=== PATIENT | female | born 1985 | race African-American/Black ===

== ENCOUNTER 2020-08-18 12:35 | Outpatient (REF) | payer OTHER, SELFPAY ==
--- NOTE | ~2020-08-18 | XR_ITS ---
EXAMINATION: XR CHEST CLINICAL INFORMATION: Shortness of breath. COMPARISON: None TECHNIQUE: 2 views of the chest were obtained. FINDINGS: No significant abnormality is noted involving the heart, lungs, mediastinum, bony thorax or soft tissues. XR/XR chest 2V IMPRESSION: No acute cardiopulmonary process.
== END 2020-08-18 12:36 | disposition home or self-care (01) ==
LOC: HO.HMGCX 12:35
PROVIDERS: PCP Internal Medicine; Visit Provider Nurse Practitioner Family
DX: R06.02 Shortness of breath (principal); R05 Cough
CPT/HCPCS: 71046

== ENCOUNTER 2021-02-17 11:08 | Outpatient (REF) | payer OTHER, SELFPAY ==
[2021-02-20 14:55] LABS: TS Negative Control Passed; TS Panel A 1; TS Panel B 0; TS Positive Control Passed; TSpotTB Negative (SeeBelow)
== END 2021-02-17 11:09 | disposition home or self-care (01) ==
LOC: HO.HMGCLDS 11:08
PROVIDERS: PCP Internal Medicine; Visit Provider Internal Medicine
DX: Z11.1 Encounter for screening for respiratory tuberculosis (principal)
CPT/HCPCS: 36415; 86481

== ENCOUNTER 2022-04-19 12:23 | Outpatient (REF) | payer OTHER, SELFPAY ==
[2022-04-21 12:12] LABS: TS Negative Control Passed; TS Panel A 0; TS Panel B 0; TS Positive Control Passed; TSpotTB Negative (Negative)
== END 2022-04-19 12:24 | disposition home or self-care (01) ==
LOC: HO.HMGCLDS 12:23
PROVIDERS: PCP Internal Medicine; Visit Provider Internal Medicine
DX: Z11.1 Encounter for screening for respiratory tuberculosis (principal)
CPT/HCPCS: 36415; 86481

== ENCOUNTER 2022-05-30 17:47 | Outpatient (REF) | payer OTHER, SELFPAY ==
[2022-05-30 18:34] LABS: Influenza A PCR POSITIVE (Negative); Influenza B PCR NEGATIVE (Negative); Resp Syncy Virus RNA Qual PCR NEGATIVE (Negative); SARS COV2 PCR INHOUSE NEGATIVE (Negative)
== END 2022-05-30 17:48 | disposition home or self-care (01) ==
LOC: HO.LNP 17:47
PROVIDERS: Visit Provider Nurse Practitioner Family
DX: Z20.822 Contact with and (suspected) exposure to COVID-19 (principal); R09.89 Other specified symptoms and signs involving the circulatory and respiratory systems
CPT/HCPCS: 0241U

== ENCOUNTER 2022-07-27 08:57 | Outpatient (REF) | payer OTHER, SELFPAY ==
[2022-07-27 11:27] LABS: MANUAL DIFF FLAG NO
[2022-07-27 12:05] LABS: Basophils Percent Auto 0.4 % (0-2); Eosinophils Absolute Auto 0.1 X10*3/uL (0.0-0.4); Eosinophils Percent Auto 1.1 % (0-4); Hematocrit 32.8 % (37.0-47.0); Hemoglobin 9.9 g/dl (12.0-16.0); Imm Gran Abs Auto 0.02 X10*3/uL (0.00-0.03); Imm Gran Pct Auto 0.3 % (0.0-0.4); Lymphocytes Absolute Auto 3.5 X10*3/uL (1.2-4.9); Lymphocytes Percent Auto 43.5 % (20-40); Mean Corpuscular HGB Conc 30.2 g/dl (31.0-35.0); Mean Corpuscular Hemoglobin 24.5 pg (27.0-33.0); Mean Corpuscular Volume 81.2 fL (80.0-98.0); Mean Platelet Volume 8.8 fL (9.4-12.3); Monocytes Absolute Auto 0.5 X10*3/uL (0.1-1.2); Monocytes Percent Auto 6.5 % (2-11); Neutrophils Absolute Auto 3.8 x10*3/uL (2.0-8.3); Neutrophils Percent Auto 48.2 % (45-73); Platelet Count 440 X10*3/uL (160-400); Red Blood Count 4.04 X10*6/uL (4.20-5.50); Red Cell Distribution Width 17.3 % (11.0-16.0)
[2022-07-27 12:21] LABS: Alanine Aminotransferase 12 U/L (0-31); Alkaline Phosphatase 130 U/L (39-117); Anion Gap 13 (12-20); Aspartate Amino Transferase 15 U/L (5-31); Bilirubin Total 0.2 mg/dL (0.0-1.0); Blood Urea Nitrogen 10 mg/dL (9-16); Calcium 8.8 mg/dL (8.4-10.2); Carbon Dioxide 24 mmol/L (22-29); Chloride 106 mmol/L (96-108); Cholesterol 282 mg/dL; Estimated Glomerular Filt Rate > 60; Glucose Fasting 89 mg/dL (60-99); HDL Cholesterol 57 mg/dL; LDL Cholesterol Calculated 209 mg/dl; Potassium 4.6 mmol/L (3.3-5.1); Sodium 138 mmol/L (135-145); TSH reflex Free T4 1.14 uIU/mL (0.32-4.0); Total Protein 6.7 g/dL (6.5-8.0); Triglycerides 83 mg/dL
[2022-07-27 12:23] LABS: Syphilis Screen Nonreactive (Nonreactive)
[2022-07-27 12:26] LABS: Estimated Average Glucose 123 mg/dL; Hemoglobin A1c % 5.9 %
[2022-07-29 08:52] LABS: HBS Num1 47.85 mIU/mL (0-7.99); HBc Num1 0.36 S/CO (0.00-0.79); HBsAGNum1 0.25 S/CO (0.00-0.99); HIV AB/AG Nonreactive (Nonreactive); HIV Num 1 0.07 S/CO (0.00-0.99); Hepatitis B Core Antibody Nonreactive (Nonreactive); Hepatitis B Surface Antigen Negative (Negative); ~HepC Num1 0.17 S/CO (0.00-0.79); ~Hepatitis B Surface Antibody REACTIVE (Nonreactive); ~Hepatitis C Antibody Nonreactive (Nonreactive)
== END 2022-07-27 08:58 | disposition home or self-care (01) ==
LOC: HO.HMGCLDS 08:57
PROVIDERS: Visit Provider Internal Medicine
DX: Z00.00 Encounter for general adult medical examination without abnormal findings (principal); Z11.4 Encounter for screening for human immunodeficiency virus [HIV]; F19.10 Other psychoactive substance abuse, uncomplicated
CPT/HCPCS: 36415; 80053; 80061; 83036; 84443; 85025; 86704; 86706; 86780; 86803; 87340; 87389

== ENCOUNTER 2022-08-10 12:35 | Outpatient (REF) | payer OTHER, SELFPAY ==
[2022-08-10 14:47] LABS: Iron 25 mcg/dL (30-160); Percent Iron Saturation 8 % (15-50); Total Iron Binding Capacity 308 mcg/dL (228-428); Unsaturated Iron Binding 283 ug/dL
[2022-08-10 15:00] LABS: Sickle Cell Scr NEGATIVE (NEGATIVE)
[2022-08-10 15:02] LABS: Vitamin B12 347 pg/mL (200-900)
[2022-08-10 18:08] LABS: CT PCR NOT DETECTED (Not Detect.); NG PCR NOT DETECTED (Not Detect.)
== END 2022-08-10 12:36 | disposition home or self-care (01) ==
LOC: HO.HMGCLDS 12:35
PROVIDERS: PCP Internal Medicine; Visit Provider Internal Medicine
DX: Z00.00 Encounter for general adult medical examination without abnormal findings (principal); F19.10 Other psychoactive substance abuse, uncomplicated; D64.9 Anemia, unspecified
CPT/HCPCS: 0353U; 82607; 83540; 85660

== ENCOUNTER 2023-06-29 08:52 | Outpatient (REF) | payer OTHER, SELFPAY ==
[2023-06-29 12:03] LABS: MANUAL DIFF FLAG NO
[2023-06-29 12:23] LABS: Basophils Percent Auto 0.4 % (0-2); Eosinophils Absolute Auto 0.2 X10*3/uL (0.0-0.4); Eosinophils Percent Auto 2.4 % (0-4); Hematocrit 40.7 % (37.0-47.0); Hemoglobin 13.2 g/dl (12.0-16.0); Imm Gran Abs Auto 0.02 X10*3/uL (0.00-0.03); Imm Gran Pct Auto 0.2 % (0.0-0.4); Lymphocytes Absolute Auto 3.5 X10*3/uL (1.2-4.9); Lymphocytes Percent Auto 42.9 % (20-40); Mean Corpuscular HGB Conc 32.4 g/dl (31.0-35.0); Mean Corpuscular Hemoglobin 29.9 pg (27.0-33.0); Mean Corpuscular Volume 92.1 fL (80.0-98.0); Mean Platelet Volume 8.8 fL (9.4-12.3); Monocytes Absolute Auto 0.5 X10*3/uL (0.1-1.2); Monocytes Percent Auto 6.5 % (2-11); Neutrophils Absolute Auto 3.8 x10*3/uL (2.0-8.3); Neutrophils Percent Auto 47.6 % (45-73); Platelet Count 341 X10*3/uL (160-400); Red Blood Count 4.42 X10*6/uL (4.20-5.50); Red Cell Distribution Width 13.3 % (11.0-16.0); White Blood Count 8.1 X10*3/uL (4.8-10.8)
[2023-06-29 12:28] LABS: Cholesterol 291 mg/dL (<200); HDL Cholesterol 67 mg/dL (>40); Iron 95 mcg/dL (30-160); LDL Cholesterol Calculated 205 mg/dL (<100); Percent Iron Saturation 36 % (15-50); Total Iron Binding Capacity 263 mcg/dL (228-428); Triglycerides 96 mg/dL (<150); Unsaturated Iron Binding 168 ug/dL
[2023-07-02 07:34] LABS: TS Negative Control Passed; TS Panel A 0; TS Panel B 0; TS Positive Control Passed; TSpotTB Negative (Negative)
== END 2023-06-29 08:53 | disposition home or self-care (01) ==
LOC: HO.HMGCLDS 08:52
PROVIDERS: PCP Internal Medicine; Visit Provider Internal Medicine
DX: D64.9 Anemia, unspecified (principal); E78.5 Hyperlipidemia, unspecified; Z11.1 Encounter for screening for respiratory tuberculosis
CPT/HCPCS: 36415; 80061; 83540; 85025; 86481

== ENCOUNTER 2023-07-28 08:00 | Outpatient (AMB) | payer OTHER, SELFPAY ==
--- NOTE | 2023-07-28 08:04 | MHC.PC.OV ---
Vital Signs 07/28/23 08:05 Height 5 ft Weight 272 lb BMI 53.1 BP 128/82 Blood Pressure Location Lt brachial Position Sitting Pulse 82 Pulse Source Pulse Oximeter Pulse Oximetry (%) 99 Oxygen Delivery Method Room Air Intake Visit Reasons: Annual PE Intake Note: Pt is here today for PE. Allergies No Known Allergies Allergy (Verified 07/28/23 08:08) Tobacco use date assessed: 07/28/23 Dental Screening Dental Screen Date: 07/28/23 Did you have a dental visit in the last 12 months?: Yes Did you have a dental problem in the last 6 months where you did not have access to dental care?: No Was dental information given to patient?: Patient has dentist HPI Annual PE HPI Details Pt presents for PE. [facility] Medical History Acute pharyngitis Asthma Enlarged thyroid gland Polysubstance abuse Cough Chronic nasal congestion Cocaine abuse H/O ETOH abuse Depression Surgical History No pertinent past surgical history Family History Father No problems noted. Mother No problems noted. Brother No problems noted. Sister No problems noted. Son No problems noted. Son No problems noted. Social History (Updated 07/28/23 @ 08:48 by Aurora Chambers MD) Household Members Other:: 2 kids (18 and 10) , in college for mental health Housing: Apartment Alcohol intake: current Alcohol intake frequency: does not drink Patient Tobacco Use Status: Current everyday Tobacco user Cigarettes Per Day: 6 e-Cigarette/Vaping Use: Never Used service: No Current occupational status: employed Cognitive needs: No Hearing needs: No Vision needs: Yes Questionnaire PHQ-9 Over the last 2 weeks, how often have you been bothered by any of the following problems? 1. Little interest or pleasure in doing things: not at all 2. Feeling down, depressed, or hopeless: not at all 3. Trouble falling or staying asleep, or sleeping too much: several days 4. Feeling tired or having little energy: several days 5. Poor appetite or overeating: several days 6. Feeling bad about yourself - or that you are a failure or have let yourself or your family down: not at all 7. Trouble concentrating on things, such as reading the newspaper or watching television: not at all 8. Moving or speaking so slowly that other people could have noticed. Or the opposite - being so fidgety or restless that you have been moving around a lot more than usual: not at all 9. Thoughts that you would be better off or of hurting yourself in some way: not at all Total score: 3 Depression Screening Interpretation: Negative Depression Screening Done: Yes Source: Developed by Drs. Neftali Flood, Kendra Henning, Jeff Hammond and colleagues, with an educational tamie from [employer]. Thrive Questionnaire Date Thrive assessed: 07/28/23 I am a: Patient What is your living situation today?: I have a steady place to live Within the past 12 months, did the food you bought not last and you didn't have the money to get more?: Never true Within the past 12 months, did you worry whether your food would run out before you got money to buy more?: Never true Do you have trouble paying for medicines?: No Do you have trouble getting transportation to medical appointments?: No Do you have trouble paying your heating and electricity bill?: No Do you have trouble taking care of your child, family member or friend?: No Do you have trouble with day-to-day activities such as bathing, preparing meals, shopping, managing finances, etc.?: No Are you currently unemployed and looking for a job?: No Are you interested in more education?: No Please select the resources that you would like help with: None Currently or been in a relationship where the following occur: no concerns reported THRIVE Score: 0 AUDIT C Alcohol Use Questionnaire (AUDIT-C) 1. How often do you have a drink containing alcohol?: Never 3. How often do you have six or more drinks on one occasion?: Never Total Score: 0 NI-7 AMB Questionnaire NI-7 Date NI - 7 assessed: 07/28/23 Feeling nervous, anxious, or on edge: 0 = Not at all Not being able to stop or control worryin = Not at all Worrying too much about different things: 0 = Not at all Trouble relaxin = Not at all Being so restless that it is hard to sit still: 0 = Not at all Becoming easily annoyed or irritable: 0 = Not at all Feeling afraid as if something awful might happen: 0 = Not at all Total NI-7 score (0-4 normal; 5-9 mild; 10-14 moderate; 15-21 severe): 0 Source: Developed by Drs. Neftali Flood, Kendra Henning, Jeff Hammond and colleagues, with an educational tamie from [employer]. Review of Systems Const All systems reviewed & are unremarkable except as noted in HPI and below Reports no additional complaints Eyes Reports no additional complaints ENT Reports no additional complaints Card Reports no additional complaints Resp Reports no additional complaints GI Reports no additional complaints Reports no additional complaints Musc Reports no additional complaints Physical exam (Primary Care) Vital Signs: Last Vital Signs Pulse 82 07/28/23 08:05 BP 128/82 07/28/23 08:05 Pulse Ox 99 07/28/23 08:05 Oxygen Delivery Method Room Air 07/28/23 08:05 BMI result Body Mass Index 53.1 Tobacco/Smoking Status: Tobacco use Status Tobacco use date assessed 07/28/23 07/28/23 08:11 Patient Tobacco Use Status Current everyday Tobacco 07/28/23 08:04 e-Cigarette/Vaping Use Never Used 07/28/23 08:04 Depression Screening Interpretation: Negative Thrive Assessment: Date of Thrive Assessment Date Thrive assessed 07/27/22 07/28/23 08:04 Currently or been in a relationship where the following occur: no concerns reported Const General: no acute distress HENMT Ears: hearing grossly normal bilaterally General nose exam: Normal external nose present Mouth: Normal oral and palatal mucosa present Eyes General: appearance normal, both eyes and all related structures Neck Neck: Yes no lymphadenopathy and Yes supple Resp Effort & Inspection: normal respiratory effort Auscultation: clear to auscultation bilaterally Cardio Rhythm: regular rhythm Heart sounds: S1 normal heart sound present and S2 normal heart sound present GI Inspection: Yes normal to inspection Palpation (GI): Soft to palpation Percussion: Yes normal to percussion Auscultation: normal bowel sounds Assessment and Plan Assessment & Plan (1) Annual physical exam: Code(s): Z00.00 - Encounter for general adult medical examination without abnormal findings Plan: Well-balanced diet regular exercise weight loss discussed with the patient. (2) Hyperlipidemia: Code(s): E78.5 - Hyperlipidemia, unspecified Plan: Low-cholesterol diet discussed with the patient's start pravastatin 40 mg. Patient will return in 2 months for fasting blood work (3) Normal pelvic exam: Comment: [facility] 08[facility] Code(s): Z01.419 - Encounter for gynecological examination (general) (routine) without abnormal findings (4) Overweight: Code(s): E66.3 - Overweight Plan: Decreasing caloric intake increase physical activity discussed with the patient. (5) Asthma: Code(s): J45.909 - Unspecified asthma, uncomplicated Plan: Start Arnuity Ellipta instead of Flovent inhaler, continue albuterol p.r.n. (6) Depression: Comment: f/u by therapist , hospitalized at [facility] 01/[address] [place] [address] Code(s): F32.9 - Major depressive disorder, single episode, unspecified Plan: Continue current medications and follow-up with Psychiatry Orders: Orders Lipid Panel 2 Months E78.5 - Hyperlipidemia, unspecified, Z00.00 - Encounter for general adult medical examination without abnormal findings TSH reflex Free T4 2 Months E78.5 - Hyperlipidemia, unspecified, Z00.00 - Encounter for general adult medical examination without abnormal findings Comprehensive [place]. Panel Fast 2 Months E78.5 - Hyperlipidemia, unspecified, Z00.00 - Encounter for general adult medical examination without abnormal findings Medications: New pravastatin 40 mg PO BEDTIME 90 tabs 2RF fluticasone furoate 100 mcg/actuation (Arnuity Ellipta) 2 inhalations inhalation DAILY 30 ea 5RF Refilled albuterol sulfate 90 mcg/actuation (ProAir HFA) 2 puffs inhalation QID PRN 8.5 grams 2RF shortness of breath or wheezing Coding Level of Care Code Est Pt Prev Care 18-39y(92716) Diagnoses Annual physical exam Z00.00 Hyperlipidemia E78.5 Normal pelvic exam Z01.419 Overweight E66.3 Asthma J45.909 Depression F32.9
[2023-07-28 08:05] VITALS: BP 128/82; PULSE 82; O2SAT 99; BMI 53.1
== END 2023-07-28 08:50 | disposition home or self-care (01) ==
PROVIDERS: PCP Internal Medicine; Visit Provider Internal Medicine
DX: Z00.00 Encounter for general adult medical examination without abnormal findings (principal); E78.5 Hyperlipidemia, unspecified; E66.3 Overweight; J45.909 Unspecified asthma, uncomplicated; F32.9 Major depressive disorder, single episode, unspecified
CPT/HCPCS: 99395

== ENCOUNTER 2024-08-08 08:05 | Outpatient (AMB) | payer OTHER, SELFPAY ==
[2024-08-08 08:08] VITALS: BP 120/78; PULSE 85; RESP 20; TEMP 36.9; O2SAT 97; BMI 56.6
--- NOTE | 2024-08-08 08:08 | MHC.PC.OV ---
Vital Signs 08/08/24 08:08 Height 5 ft Weight 290 lb BMI 56.6 BP 120/78 Blood Pressure Location Lt brachial Position Sitting Respiration 20 Pulse 85 Pulse Source Pulse Oximeter Temp 98.5 F Temp Source Oral Pulse Oximetry (%) 97 Oxygen Delivery Method Room Air Intake Visit Reasons: Annual PE Intake Note: Pt is here today for PE. Allergies No Known Allergies Allergy (Verified 08/08/24 08:08) Medication List - Last Reconciled 08/08/24 by Aurora Chambers MD albuterol sulfate 90 mcg/actuation 2 puffs inhalation QID PRN ferrous sulfate 325 mg PO DAILY fluticasone furoate 100 mcg/actuation (Arnuity Ellipta) 2 inhalations inhalation DAILY pravastatin 40 mg PO BEDTIME quetiapine 25 mg PO DAILY trazodone 50 mg PO BEDTIME venlafaxine ER (Effexor XR) 150 mg PO DAILY Tobacco use date assessed: 08/08/24 Dental Screening Dental Screen Date: 08/08/24 Did you have a dental visit in the last 12 months?: Yes Did you have a dental problem in the last 6 months where you did not have access to dental care?: No Was dental information given to patient?: Patient has dentist HPI Annual PE HPI Details Pt presents for PE. Pt c/o postnasal drip and chronic cough. She has been using albuterol daily but stopped using Arnuity Ellipta. Patient continues to smoke a pack a day. Chronic depression and anxiety are stable on current medications. [facility] Medical History (Updated 08/08/24 @ 08:57 by Aurora Chambers MD) Acute pharyngitis Asthma Polysubstance abuse Cough Chronic nasal congestion Cocaine abuse H/O ETOH abuse Depression Surgical History No pertinent past surgical history Family History Father No problems noted. Mother No problems noted. Brother No problems noted. Sister No problems noted. Son No problems noted. Son No problems noted. Social History (Updated 07/28/23 @ 08:48 by Aurora Chambers MD) Household Members Other:: 2 kids (18 and 10) , in college for mental health Housing: Apartment Alcohol intake: current Alcohol intake frequency: does not drink Patient Tobacco Use Status: Current everyday Tobacco user Cigarettes Per Day: 6 e-Cigarette/Vaping Use: Never Used service: No Current occupational status: employed Cognitive needs: No Hearing needs: No Vision needs: Yes Questionnaire PHQ-9 Over the last 2 weeks, how often have you been bothered by any of the following problems? 1. Little interest or pleasure in doing things: not at all 2. Feeling down, depressed, or hopeless: not at all 3. Trouble falling or staying asleep, or sleeping too much: several days 4. Feeling tired or having little energy: several days 5. Poor appetite or overeating: not at all 6. Feeling bad about yourself - or that you are a failure or have let yourself or your family down: not at all 7. Trouble concentrating on things, such as reading the newspaper or watching television: not at all 8. Moving or speaking so slowly that other people could have noticed. Or the opposite - being so fidgety or restless that you have been moving around a lot more than usual: not at all 9. Thoughts that you would be better off or of hurting yourself in some way: not at all Total score: 2 Depression Screening Interpretation: Negative Depression Screening Done: Yes 35300 - PHQ-9 Billing: Yes Source: Developed by Drs. Neftali Flood, Kendra Henning, Jeff Hammond and colleagues, with an educational tamie from [employer] Thrive Questionnaire Date Thrive assessed: 08/08/24 I am a: Patient What is your living situation today?: I have a steady place to live Within the past 12 months, did the food you bought not last and you didn't have the money to get more?: Never true Within the past 12 months, did you worry whether your food would run out before you got money to buy more?: Never true Do you have trouble paying for medicines?: No Do you have trouble getting transportation to medical appointments?: No Do you have trouble paying your heating and electricity bill?: No Do you have trouble taking care of your child, family member or friend?: No Do you have trouble with day-to-day activities such as bathing, preparing meals, shopping, managing finances, etc.?: No Are you currently unemployed and looking for a job?: No Are you interested in more education?: No Please select the resources that you would like help with: None Currently or been in a relationship where the following occur: No concerns reported THRIVE Score: 0 AUDIT C Alcohol Use Questionnaire (AUDIT-C) 1. How often do you have a drink containing alcohol?: Never 3. How often do you have six or more drinks on one occasion?: Never Total Score: 0 NI-7 AMB Questionnaire NI-7 Date NI - 7 assessed: 08/08/24 Feeling nervous, anxious, or on edge: 0 = Not at all Not being able to stop or control worryin = Not at all Worrying too much about different things: 0 = Not at all Trouble relaxin = Not at all Being so restless that it is hard to sit still: 0 = Not at all Becoming easily annoyed or irritable: 0 = Not at all Feeling afraid as if something awful might happen: 0 = Not at all Total NI-7 score (0-4 normal; 5-9 mild; 10-14 moderate; 15-21 severe): 0 Source: Developed by Drs. Neftali Flood, Kendra Henning, Jeff Hammond and colleagues, with an educational tamie from [employer] NI-7 Assessment Billing NI-7 Assessment Tool: NI-7 Assessment 95342 Review of Systems Const All systems reviewed & are unremarkable except as noted in HPI and below Eyes Reports no additional complaints ENT Reports no additional complaints Card Reports no additional complaints Resp Reports no additional complaints GI Reports no additional complaints Reports no additional complaints Musc Reports no additional complaints Physical exam (Primary Care) Vital Signs: Last Vital Signs Temp 98.5 F 08/08/24 08:08 Pulse 85 08/08/24 08:08 Resp 20 08/08/24 08:08 BP 120/78 08/08/24 08:08 Pulse Ox 97 08/08/24 08:08 Oxygen Delivery Method Room Air 08/08/24 08:08 BMI result Body Mass Index 56.6 Tobacco/Smoking Status: Tobacco use Status Tobacco use date assessed 08/08/24 08/08/24 08:09 Patient Tobacco Use Status Current everyday Tobacco 08/08/24 08:09 e-Cigarette/Vaping Use Never Used 08/08/24 08:09 PHQ-9: PHQ-9 Score PHQ-9: Total score 2 08/08/24 08:09 Depression Screening Interpretation: Negative Thrive Assessment: Date of Thrive Assessment Date Thrive assessed 08/08/24 08/08/24 08:09 Currently or been in a relationship where the following occur: No concerns reported Const General: no acute distress HENMT Ears: hearing grossly normal bilaterally General nose exam: Normal external nose present Face and sinus: Yes normal facial exam Mouth: Normal oral and palatal mucosa present Eyes General: appearance normal, both eyes and all related structures Neck Neck: Yes no lymphadenopathy and Yes supple Resp Effort & Inspection: normal respiratory effort Auscultation: clear to auscultation bilaterally Cardio Rhythm: regular rhythm Heart sounds: S1 normal heart sound present and S2 normal heart sound present GI Inspection: Yes normal to inspection Palpation (GI): Soft to palpation Percussion: Yes normal to percussion Auscultation: normal bowel sounds Coding Level of Care Code Est Pt Prev Care 18-39y(90859) Diagnoses Annual physical exam Z00.00 Hyperlipidemia E78.5 Depression F32.9 Polysubstance abuse F19.10 Rhinitis, chronic J31.0 Asthma J45.909 Additional Codes NI-7 Assessment Billing - NI-7 Assessment Tool: NI-7 Assessment 87757 ([id number]) PHQ-9 - 16171 - PHQ-9 Billing: Yes ([id number]) Assessment & Plan Assessment & Plan (1) Annual physical exam: Code(s): Z00.00 - Encounter for general adult medical examination without abnormal findings Category: Medical Plan: Well-balanced diet increase physical activity decrease caloric intake weight loss discussed with the patient. She [facility] (2) Hyperlipidemia: Code(s): E78.5 - Hyperlipidemia, unspecified Category: Medical Plan: Restart pravastatin return for fasting blood work in 1 month (3) Depression: Comment: f/u by therapist , hospitalized at [facility] 01/[address] [place] [address] Code(s): F32.9 - Major depressive disorder, single episode, unspecified Category: Medical Plan: Continue current medications follow-up with the therapist (4) Polysubstance abuse: Comment: clean since 2018 Code(s): F19.10 - Other psychoactive substance abuse, uncomplicated Category: Medical Plan: Clean since 2019 (5) Rhinitis, chronic: Comment: ENT EVALUATION IN 2023 Code(s): J31.0 - Chronic rhinitis Category: Medical Plan: Try Claritin and saline nasal spray. (6) Asthma: Code(s): J45.909 - Unspecified asthma, uncomplicated Category: Medical Plan: RESTART ARNUITY , TOBACCO QUITTING DISCUSSED WITH THE PT Orders: Orders Complete Blood Count Auto Diff 1 Month E78.5 - Hyperlipidemia, unspecified, Z00.00 - Encounter for general adult medical examination without abnormal findings Comprehensive [place]. Panel Fast 1 Month E78.5 - Hyperlipidemia, unspecified, Z00.00 - Encounter for general adult medical examination without abnormal findings Lipid Panel 1 Month E78.5 - Hyperlipidemia, unspecified, Z00.00 - Encounter for general adult medical examination without abnormal findings UA w Microscopic 1 Month E78.5 - Hyperlipidemia, unspecified, Z00.00 - Encounter for general adult medical examination without abnormal findings Hemoglobin A1c 1 Month E78.5 - Hyperlipidemia, unspecified, Z00.00 - Encounter for general adult medical examination without abnormal findings Medications: New loratadine (Claritin) 10 mg PO DAILY 90 tabs 1RF Refilled pravastatin 40 mg PO BEDTIME 90 tabs 3RF albuterol sulfate 90 mcg/actuation 2 puffs inhalation QID PRN 8.5 grams 2RF shortness of breath or wheezing venlafaxine ER (Effexor XR) 150 mg PO DAILY 90 caps 3RF fluticasone furoate 100 mcg/actuation (Arnuity Ellipta) 2 inhalations inhalation DAILY 30 ea 5RF quetiapine 25 mg PO DAILY 90 tabs 3RF trazodone 50 mg PO BEDTIME 90 tabs 3RF
--- OUTSIDE RECORDS SUMMARY | 2024-08-08 08:17 | XMS_ITS | Clinical Summary ---
Author Organization [facility] ity Address [address] [place] [address] Care Team Providers Care Wafer Batter Mixer Name Role Phone Jovi Gupta MD Primary Care Provider [phone] Social History Tobacco Use Types Packs/Day Years Used Date Smoking Tobacco: Never Assessed Comments Unknown Sex and Gender Information Value Date Recorded Sex Assigned at Not on file Legal Sex Female 6:06 AM EST Gender Identity Not on file Sexual Orientation Not on file Plan of Treatment Health Maintenance Due Date Last Done Comments Hepatitis B Vaccines (1 of 3 - 19+ 3-dose series) 2005 Cervical Cancer Screening: P ap Smear 09/16/2007 Cholesterol Screening (Lipid Panel) 05/15/2022 Depression Screening 05/15/2022 HIV Screening 05/15/2022 Hepatitis C Screening 05/15/2022 Social Influencers of Health Screening 05/15/2022 DTaP,Tdap,and Td Vaccines (2 - Td or Tdap) 09/25/2023 09/24/2013 COVID-19 Vaccine (2023-2 5 season) 2024 Influenza Vaccine (#1) 2024 HIB Vaccines Aged Out No longer eligi ble based on patient's age to complete this topic HPV Vaccines Aged Out No longer eligi ble based on patient's age to complete this topic Hepatitis A Vaccines Aged Out No long er eligible based on patient's age to complete this topic IPV Vaccines Aged Out No longer eligi ble based on patient's age to complete this topic MMR Vaccines Aged Out No longer eligi ble based on patient's age to complete this topic Meningococcal ACWY Vaccine Aged Out N o longer eligible based on patient's age to complete this topic Meningococcal B Vacine Aged Out No lo nger eligible based on patient's age to complete this topic Pneumococcal Vaccine: Pediat rics (0 to 5 Years) and At-Risk Patients (6 to 64 Years) Aged Out No longer eligi ble based on patient's age to complete this topic RSV Immunization Patients Un luly 20 months Aged Out No longer eligible b ased on patient's age to complete this topic Varicella Vaccines Aged Out No longer eligible based on patient's age to complete this topic Care Teams Wafer Batter Mixer Relationship Specialty Start Date End Date Jovi Gupta MD [address] [place] [id number] PCP - General Internal Medicine 10/28/16
== END 2024-08-08 08:49 | disposition home or self-care (01) ==
PROVIDERS: PCP Internal Medicine; Visit Provider Internal Medicine
DX: Z00.00 Encounter for general adult medical examination without abnormal findings (principal); E78.5 Hyperlipidemia, unspecified; F32.9 Major depressive disorder, single episode, unspecified; F19.10 Other psychoactive substance abuse, uncomplicated; J31.0 Chronic rhinitis; J45.909 Unspecified asthma, uncomplicated

== ENCOUNTER → 2024-08-08 08:05 | Outpatient (BNVA) | payer OTHER, SELFPAY | PROVIDERS: PCP Internal Medicine; Visit Provider Internal Medicine | DX: Z00.00 Encounter for general adult medical examination without abnormal findings (principal); E78.5 Hyperlipidemia, unspecified; F32.9 Major depressive disorder, single episode, unspecified; F19.10 Other psychoactive substance abuse, uncomplicated; J31.0 Chronic rhinitis; J45.909 Unspecified asthma, uncomplicated | CPT/HCPCS: 96127; 99395 ==

== ENCOUNTER 2024-08-30 13:29 | Outpatient (REF) | payer OTHER, SELFPAY ==
--- OUTSIDE RECORDS SUMMARY | 2024-08-30 15:48 | XMS_ITS | Clinical Summary ---
Author Organization [facility] ity Address [address] [place] [address] Care Team Providers Care Brim Cutter Name Role Phone Jovi Gupta MD Primary Care Provider [phone] Social History Tobacco Use Types Packs/Day Years [...] age to complete this topic Care Teams Brim Cutter Relationship Specialty Start Date End Date Jovi Gupta MD [address] [place] [id number] PCP - General Internal Medicine 10/28/16
[2024-08-30 16:20] LABS: MANUAL DIFF FLAG NO
[2024-08-30 16:32] LABS: Basophils Percent Auto 0.5 % (0-2); Eosinophils Absolute Auto 0.2 X10*3/uL (0.0-0.4); Eosinophils Percent Auto 3.6 % (0-4); Hemoglobin 13.4 g/dl (12.0-16.0); Imm Gran Abs Auto 0.01 X10*3/uL (0.00-0.03); Imm Gran Pct Auto 0.2 % (0.0-0.4); Lymphocytes Absolute Auto 2.8 X10*3/uL (1.2-4.9); Lymphocytes Percent Auto 50.4 % (20-40); Mean Corpuscular HGB Conc 33.5 g/dl (31.0-35.0); Mean Corpuscular Hemoglobin 30.5 pg (27.0-33.0); Mean Corpuscular Volume 90.9 fL (80.0-98.0); Mean Platelet Volume 9.1 fL (9.4-12.3); Monocytes Absolute Auto 0.4 X10*3/uL (0.1-1.2); Monocytes Percent Auto 7.7 % (2-11); Neutrophils Absolute Auto 2.1 x10*3/uL (2.0-8.3); Neutrophils Percent Auto 37.6 % (45-73); Platelet Count 299 X10*3/uL (160-400); Red Cell Distribution Width 13.2 % (11.0-16.0); White Blood Count 5.6 X10*3/uL (4.8-10.8)
[2024-08-30 16:42] LABS: Appearance Urine Turbid; Color Urine Orange; Glucose Urine UA Negative (Negative); Leukocyte Esterase Urine Moderate (2+) (Negative); Nitrite Urine Positive (Negative); Specific Gravity - Urine >= 1.030 (1.005-1.025); UMIC TRIGGER UA YES; Urine Blood Large (3+) (Negative); Urine Ketones 40 mg/dL (Negative); Urine Protein 100 (2+) mg/dL (Neg-Trace)
[2024-08-30 16:44] LABS: Estimated Average Glucose 111 mg/dL; Hemoglobin A1C 130.8498 umol/L; Hemoglobin A1c % 5.5 % (<6.0); Total Hemoglobin (HGBA1C) 3577.2391 umol/L
[2024-08-30 17:00] LABS: Bacteria Urine 4+ (None Seen); Calcium Oxalate Crystals Urine Present; Hyaline Casts Urine 0-2 /LPF (0-2); RBC Urine 0-2 /HPF (0-2); Squamous Epithelial Cell Urine >20 /HPF (0-2); WBC Urine 0-5 /HPF (0-5)
[2024-08-30 17:40] LABS: Alanine Aminotransferase 23 U/L (0-31); Alkaline Phosphatase 101 U/L (39-117); Anion Gap 13 (12-20); Aspartate Amino Transferase 34 U/L (5-31); Bilirubin Total 0.3 mg/dL (0.0-1.0); Blood Urea Nitrogen 7 mg/dL (9-16); Calcium 9.1 mg/dL (8.4-10.2); Carbon Dioxide 22 mmol/L (22-29); Chloride 107 mmol/L (96-108); Cholesterol 183 mg/dL (<200); Estimated Glomerular Filt Rate > 60; Glucose Fasting 78 mg/dL (60-99); HDL Cholesterol 57 mg/dL (>40); LDL Cholesterol Calculated 111 mg/dL (<100); Potassium 3.9 mmol/L (3.3-5.1); Sodium 138 mmol/L (135-145); Total Protein 7.1 g/dL (6.5-8.0); Triglycerides 77 mg/dL (<150)
== END 2024-08-30 13:30 | disposition home or self-care (01) ==
LOC: HO.HMGCLDS 13:29
PROVIDERS: PCP Internal Medicine; Visit Provider Internal Medicine
DX: Z00.00 Encounter for general adult medical examination without abnormal findings (principal); E78.5 Hyperlipidemia, unspecified
CPT/HCPCS: 36415; 80053; 80061; 81001; 83036; 85025

== ENCOUNTER 2024-09-06 10:55 | Outpatient (REF) | payer OTHER, SELFPAY ==
[2024-09-06 13:20] LABS: Appearance Urine Cloudy; Color Urine Yellow; Glucose Urine UA Negative (Negative); Leukocyte Esterase Urine Negative (Negative); Nitrite Urine Negative (Negative); PH 5.5 (5.0-9.0); Specific Gravity - Urine >= 1.030 (1.005-1.025); UMIC TRIGGER UA YES; Urine Blood Trace (Negative); Urine Ketones 15 mg/dL (Negative); Urine Protein Trace mg/dL (Neg-Trace)
[2024-09-06 13:24] LABS: Bacteria Urine 2+ (None Seen); Hyaline Casts Urine 0-2 /LPF (0-2); WBC Urine 0-5 /HPF (0-5)
== END 2024-09-06 10:56 | disposition home or self-care (01) ==
LOC: HO.HMGCLDS 10:55
PROVIDERS: PCP Internal Medicine; Visit Provider Internal Medicine
DX: R82.71 Bacteriuria (principal)
CPT/HCPCS: 81001; 87086

== ENCOUNTER 2024-09-12 10:33 | Outpatient (AMB) | payer OTHER, SELFPAY ==
--- NOTE | 2024-09-12 10:42 | A.OFFPC_ITS ---
Vital Signs 09/12/24 10:43 Height 5 ft Weight 268 lb BMI 52.3 BP 120/80 Blood Pressure Location Lt brachial Position Sitting Respiration 20 Pulse 91 Pulse Source Pulse Oximeter Temp 98.7 F Temp Source Oral Pulse Oximetry (%) 98 Oxygen Delivery Method Room Air Intake Visit Reasons: 5 week follow up Intake Note: Pt is here today for 5 weeks follow up visit. Allergies No Known Allergies Allergy (Verified 09/12/24 10:43) Medication List - Last Reconciled 09/12/24 by Aurora Chambers MD albuterol sulfate 90 mcg/actuation 2 puffs inhalation QID PRN ferrous sulfate 325 mg PO DAILY fluticasone furoate 100 mcg/actuation (Arnuity Ellipta) 2 inhalations inhalation DAILY loratadine (Claritin) 10 mg PO DAILY pravastatin 40 mg PO BEDTIME quetiapine 25 mg PO DAILY trazodone 50 mg PO BEDTIME venlafaxine ER (Effexor XR) 150 mg PO DAILY Tobacco use date assessed: 09/12/24 Dental Screening Dental Screen Date: 08/08/24 HPI 5 week follow up HPI Details Patient presents for the follow-up of chronic asthma better controlled on Arnuity. Patient has been taking pravastatin for hyperlipidemia and tolerating well. She started decreasing caloric intake diet and exercising daily and lost 20 lb since the last visit. Chronic depression stable on current medications [facility] Medical History (Updated 09/12/24 @ 12:05 by Aurora Chambers MD) Acute pharyngitis Asthma Polysubstance abuse Cough Chronic nasal congestion Cocaine abuse H/O ETOH abuse Depression Surgical History No pertinent past surgical history Family History Father No problems noted. Mother No problems noted. Brother No problems noted. Sister No problems noted. Son No problems noted. Son No problems noted. Social History (Updated 07/28/23 @ 08:48 by Aurora Chambers MD) Household Members Other:: 2 kids (18 and 10) , in college for mental health Housing: Apartment Alcohol intake: current Alcohol intake frequency: does not drink Patient Tobacco Use Status: Current everyday Tobacco user Cigarettes Per Day: 6 e-Cigarette/Vaping Use: Never Used service: No Current occupational status: employed Cognitive needs: No Hearing needs: No Vision needs: Yes Questionnaire Thrive Questionnaire Date Thrive assessed: 08/08/24 I am a: Patient What is your living situation today?: I have a steady place to live Within the past 12 months, did the food you bought not last and you didn't have the money to get more?: Never true Within the past 12 months, did you worry whether your food would run out before you got money to buy more?: Never true Do you have trouble paying for medicines?: No Do you have trouble getting transportation to medical appointments?: No Do you have trouble paying your heating and electricity bill?: No Do you have trouble taking care of your child, family member or friend?: No Do you have trouble with day-to-day activities such as bathing, preparing meals, shopping, managing finances, etc.?: No Are you currently unemployed and looking for a job?: No Are you interested in more education?: No Please select the resources that you would like help with: None Currently or been in a relationship where the following occur: No concerns reported THRIVE Score: 0 NI-7 AMB Questionnaire NI-7 Date NI - 7 assessed: 08/08/24 Source: Developed by Drs. Neftali Flood, Kendra Henning, Jeff Hammond and colleagues, with an educational tamie from [employer]. Review of Systems Const All systems reviewed & are unremarkable except as noted in HPI and below Eyes Reports no additional complaints ENT Reports no additional complaints Card Reports no additional complaints Resp Reports no additional complaints GI Reports no additional complaints Reports no additional complaints Physical exam (Primary Care) Vital Signs: Last Vital Signs Temp 98.7 F 09/12/24 10:43 Pulse 91 09/12/24 10:43 Resp 20 09/12/24 10:43 BP 120/80 09/12/24 10:43 Pulse Ox 98 09/12/24 10:43 Oxygen Delivery Method Room Air 09/12/24 10:43 BMI result Body Mass Index 52.3 Tobacco/Smoking Status: Tobacco use Status Tobacco use date assessed 09/12/24 09/12/24 10:45 Patient Tobacco Use Status Current everyday Tobacco 09/12/24 10:43 e-Cigarette/Vaping Use Never Used 09/12/24 10:43 Thrive Assessment: Date of Thrive Assessment Date Thrive assessed 08/08/24 09/12/24 10:43 Currently or been in a relationship where the following occur: No concerns reported Const General: no acute distress HENMT Face and sinus: Yes normal facial exam Neck Neck: Yes supple Resp Effort & Inspection: normal respiratory effort Auscultation: clear to auscultation bilaterally Cardio Rhythm: regular rhythm Heart sounds: S1 normal heart sound present and S2 normal heart sound present Coding Level of Care Code Est Pt Level 4 (41657) Diagnoses Hyperlipidemia E78.5 Hyperglycemia R73.9 Depression F32.9 Asthma J45.909 Obesity E66.9 Assessment & Plan Assessment & Plan (1) Hyperlipidemia: Code(s): E78.5 - Hyperlipidemia, unspecified Category: Medical Plan: Continue pravastatin low-cholesterol diet (2) Hyperglycemia: Code(s): R73.9 - Hyperglycemia, unspecified Category: Medical Plan: Continue ADA diet and weight loss (3) Depression: Comment: f/u by therapist , hospitalized at [facility] 01/[address] [place] [address] Code(s): F32.9 - Major depressive disorder, single episode, unspecified Category: Medical Plan: Continue medications follow-up with psychiatry (4) Asthma: Code(s): J45.909 - Unspecified asthma, uncomplicated Category: Medical Plan: Continue Arnuity (5) Obesity: Code(s): E66.9 - Obesity, unspecified Category: Medical Plan: Continue decrease caloric intake and Regular physical activity follow-up in 3 months Orders: Orders Comprehensive [place]. Panel Fast 3 Months E78.5 - Hyperlipidemia, unspecified, R73.9 - Hyperglycemia, unspecified Lipid Panel 3 Months E78.5 - Hyperlipidemia, unspecified, R73.9 - Hyperglycemia, unspecified Hemoglobin A1c 3 Months E78.5 - Hyperlipidemia, unspecified, R73.9 - Hyperglycemia, unspecified TSH reflex Free T4 3 Months E78.5 - Hyperlipidemia, unspecified, R73.9 - Hyperglycemia, unspecified Complete Blood Count Auto Diff 3 Months E78.5 - Hyperlipidemia, unspecified, R73.9 - Hyperglycemia, unspecified Medications: Refilled fluticasone furoate 100 mcg/actuation (Arnuity Ellipta) 2 inhalations inhalation DAILY 180 ea 5RF
[2024-09-12 10:43] VITALS: BP 120/80; PULSE 91; RESP 20; TEMP 37.1; O2SAT 98; BMI 52.3
--- OUTSIDE RECORDS SUMMARY | 2024-09-12 11:41 | XMS_ITS | Clinical Summary ---
Author Organization [facility] ity Address [address] [place] [address] Care Team Providers Care Hired Worker Name Role Phone Jovi Gupta MD Primary Care Provider [phone] Social History Tobacco Use Types Packs/Day Years [...] age to complete this topic Care Teams Hired Worker Relationship Specialty Start Date End Date Jovi Gupta MD [address] [place] [id number] PCP - General Internal Medicine 10/28/16
== END 2024-09-12 11:26 | disposition home or self-care (01) ==
LOC: HO.HMCC 10:34
PROVIDERS: PCP Internal Medicine; Visit Provider Internal Medicine
DX: E78.5 Hyperlipidemia, unspecified (principal); R73.9 Hyperglycemia, unspecified; E66.9 Obesity, unspecified; Z68.43 Body mass index [BMI] 50.0-59.9, adult; F32.9 Major depressive disorder, single episode, unspecified; J45.909 Unspecified asthma, uncomplicated

== ENCOUNTER → 2024-09-12 10:33 | Outpatient (BNVA) | payer OTHER, SELFPAY | PROVIDERS: PCP Internal Medicine; Visit Provider Internal Medicine | DX: J45.909 Unspecified asthma, uncomplicated (principal); E78.5 Hyperlipidemia, unspecified; R73.9 Hyperglycemia, unspecified; F32.9 Major depressive disorder, single episode, unspecified; E66.9 Obesity, unspecified; Z68.43 Body mass index [BMI] 50.0-59.9, adult; Z79.899 Other long term (current) drug therapy | CPT/HCPCS: 99212 ==

== ENCOUNTER 2024-10-17 11:45 | Outpatient (REF) | payer OTHER, SELFPAY ==
--- OUTSIDE RECORDS SUMMARY | 2024-10-17 13:15 | XMS_ITS | Clinical Summary ---
Author Organization [facility] ity Address [address] [place] [address] Care Team Providers Care Cashier Self Service Gasoline Name Role Phone Jovi Gupta MD Primary Care Provider [phone] Social History Tobacco Use Types Packs/Day Years [...] Vaccine (2023-2 5 season) 2024 Influenza Vaccine (Season Ended) 2025 HIB Vaccines Aged Out No longer eligi [...] age to complete this topic Meningococcal B Vaccine Aged Out No l onger eligible based on patient's age to complete [...] age to complete this topic Care Teams Cashier Self Service Gasoline Relationship Specialty Start Date End Date Jovi Gupta MD [address] [place] [id number] PCP - General Internal Medicine 10/28/16
== END 2024-10-17 11:46 | disposition home or self-care (01) ==
LOC: HO.HMGCX 11:45
PROVIDERS: PCP Internal Medicine; Visit Provider Internal Medicine
DX: Z13.89 Encounter for screening for other disorder (principal)

== ENCOUNTER 2024-10-17 11:50 | Outpatient (REF) | payer OTHER, SELFPAY | END 2024-10-17 11:51 | disposition home or self-care (01) | LOC: HO.HMGCX 11:50 | PROVIDERS: PCP Internal Medicine; Visit Provider Internal Medicine | DX: Z13.89 Encounter for screening for other disorder (principal) ==

== ENCOUNTER 2024-11-07 13:54 | Outpatient (REF) | payer OTHER, SELFPAY ==
--- NOTE | ~2024-11-07 | US_ITS ---
CLINICAL HISTORY: R31.9 - Hematuria, unspecified US Renal Comparison: None Findings: Right kidney normal size and increased echotexture, 9.3 cm length. Left kidney normal size and increased echotexture, 10.5 cm length. No collecting system dilatation of either kidney. Normal color Doppler. Urinary bladder is unremarkable. Prevoid volume 237 mL. Postvoid volume 30 mL. Bilateral ureteral jets are visualized. IMPRESSION: 1. Findings suggesting chronic renal disease. No acute findings. This document has been electronically signed by: Marko Morrison MD on 11/08/2024 09:39:28
--- OUTSIDE RECORDS SUMMARY | 2024-11-07 14:04 | XMS_ITS | Clinical Summary ---
Author Organization [facility] ity Address [address] [place] [address] Care Team Providers Care Head Kiln Operator Name Role Phone Jovi Gupta MD Primary Care Provider [phone] Social History Tobacco Use Types Packs/Day Years [...] age to complete this topic Care Teams Head Kiln Operator Relationship Specialty Start Date End Date Jovi Gupta MD [address] [place] [id number] PCP - General Internal Medicine 10/28/16
== END 2024-11-07 13:55 | disposition home or self-care (01) ==
LOC: HO.HMGCX 13:54
PROVIDERS: PCP Internal Medicine; Visit Provider Internal Medicine
DX: R31.9 Hematuria, unspecified (principal)
CPT/HCPCS: 76770

== ENCOUNTER → 2024-11-07 13:56 | Outpatient (BNV) | payer OTHER, SELFPAY | PROVIDERS: PCP Internal Medicine; Visit Provider Specialist | DX: R31.9 Hematuria, unspecified (principal) | CPT/HCPCS: 76770 ==

== ENCOUNTER 2024-12-06 09:18 | Outpatient (REF) | payer OTHER, SELFPAY ==
--- OUTSIDE RECORDS SUMMARY | 2024-12-06 09:40 | XMS_ITS | Clinical Summary ---
Author Organization [facility] ity Address [address] [place] [address] Care Team Providers Care Mandrel Maker Name Role Phone Jovi Gupta MD Primary Care Provider [phone] Social History Tobacco Use Types Packs/Day Years [...] age to complete this topic Care Teams Mandrel Maker Relationship Specialty Start Date End Date Jovi Gupta MD [address] [place] [id number] PCP - General Internal Medicine 10/28/16
[2024-12-06 10:21] LABS: MANUAL DIFF FLAG NO
[2024-12-06 10:38] LABS: Basophils Percent Auto 0.4 % (0-2); Eosinophils Absolute Auto 0.2 X10*3/uL (0.0-0.4); Hematocrit 39.4 % (37.0-47.0); Hemoglobin 12.9 g/dl (12.0-16.0); Imm Gran Abs Auto 0.01 X10*3/uL (0.00-0.03); Imm Gran Pct Auto 0.1 % (0.0-0.4); Lymphocytes Absolute Auto 3.2 X10*3/uL (1.2-4.9); Lymphocytes Percent Auto 47.6 % (20-40); Mean Corpuscular HGB Conc 32.7 g/dl (31.0-35.0); Mean Corpuscular Volume 94.7 fL (80.0-98.0); Mean Platelet Volume 9.3 fL (9.4-12.3); Monocytes Absolute Auto 0.6 X10*3/uL (0.1-1.2); Monocytes Percent Auto 8.4 % (2-11); Neutrophils Absolute Auto 2.7 x10*3/uL (2.0-8.3); Neutrophils Percent Auto 40.5 % (45-73); Platelet Count 264 X10*3/uL (160-400); Red Blood Count 4.16 X10*6/uL (4.20-5.50); Red Cell Distribution Width 13.9 % (11.0-16.0); White Blood Count 6.8 X10*3/uL (4.8-10.8)
[2024-12-06 10:48] LABS: Estimated Average Glucose 105 mg/dL; Hemoglobin A1c % 5.3 % (<6.0)
[2024-12-06 11:12] LABS: Alanine Aminotransferase 25 U/L (0-31); Albumin Level 4.2 g/dL (3.5-5.0); Alkaline Phosphatase 116 U/L (39-117); Anion Gap 13 (12-20); Aspartate Amino Transferase 49 U/L (5-31); Bilirubin Total 0.2 mg/dL (0.0-1.0); Blood Urea Nitrogen 12 mg/dL (9-16); Carbon Dioxide 23 mmol/L (22-29); Chloride 105 mmol/L (96-108); Cholesterol 217 mg/dL (<200); Estimated Glomerular Filt Rate > 60; Glucose Fasting 79 mg/dL (60-99); HDL Cholesterol 54 mg/dL (>40); LDL Cholesterol Calculated 149 mg/dL (<100); Potassium 3.8 mmol/L (3.3-5.1); Sodium 137 mmol/L (135-145); Total Protein 6.7 g/dL (6.5-8.0); Triglycerides 72 mg/dL (<150)
[2024-12-06 11:32] LABS: TSH reflex Free T4 1.74 uIU/mL (0.32-4.0)
== END 2024-12-06 09:19 | disposition home or self-care (01) ==
LOC: HO.HMGCLDS 09:18
PROVIDERS: PCP Internal Medicine; Visit Provider Internal Medicine
DX: E78.5 Hyperlipidemia, unspecified (principal); R73.9 Hyperglycemia, unspecified
CPT/HCPCS: 36415; 80053; 80061; 83036; 84443; 85025

== ENCOUNTER 2024-12-12 11:03 | Outpatient (AMB) | payer OTHER, SELFPAY ==
[2024-12-12 11:23] VITALS: BP 124/80; PULSE 90; RESP 18; TEMP 36.8; O2SAT 97; BMI 42.8
--- NOTE | 2024-12-12 11:23 | A.OFFPC_ITS ---
Vital Signs 12/12/24 11:23 Height 5 ft Weight 219 lb BMI 42.8 BP 124/80 Blood Pressure Location Lt brachial Position Sitting Respiration 18 Pulse 90 Pulse Source Pulse Oximeter Temp 98.2 F Temp Source Oral Pulse Oximetry (%) 97 Oxygen Delivery Method Room Air Intake Visit Reasons: 3 month follow up Intake Note: Pt is here today for 3 months follow up visit. Allergies No Known Allergies Allergy (Verified 12/12/24 11:23) Medication List - Last Reconciled 12/12/24 by Aurora Chambers MD albuterol sulfate 90 mcg/actuation 2 puffs inhalation QID PRN ferrous sulfate 325 mg PO DAILY fluticasone furoate 100 mcg/actuation (Arnuity Ellipta) 2 inhalations inhalation DAILY loratadine (Claritin) 10 mg PO DAILY pravastatin 40 mg PO BEDTIME quetiapine 25 mg PO DAILY trazodone 50 mg PO BEDTIME venlafaxine ER (Effexor XR) 150 mg PO DAILY Tobacco use date assessed: 12/12/24 Dental Screening Dental Screen Date: 08/08/24 HPI 3 month follow up HPI Details Patient presents for a follow-up of hyperlipidemia chronic depression and anxiety and asthma , stable on current medications. Patient is trying to get reestablished with a therapist and a psychiatrist. Patient complains of intermittent bilateral hands pain worse at night and tingling sensation on and off for the last week. Patient works as LINUX PROGRAMMER. Patient denies weakness in the hand correctional security officer. [facility] Medical History Acute pharyngitis Asthma Polysubstance abuse Cough Chronic nasal congestion Cocaine abuse H/O ETOH abuse Depression Surgical History Hx of section No pertinent past surgical history Family History Father No problems noted. Mother No problems noted. Brother No problems noted. Sister No problems noted. Son No problems noted. Son No problems noted. Social History Household Members Other:: 2 kids (18 and 10) , in college for mental health Housing: Apartment Alcohol intake: current Alcohol intake frequency: does not drink Patient Tobacco Use Status: Current everyday Tobacco user Tobacco use type: Cigarette Cigarettes Per Day: 11 e-Cigarette/Vaping Use: Never Used service: No Current occupational status: employed Cognitive needs: No Hearing needs: No Vision needs: Yes Questionnaire Thrive Questionnaire Date Thrive assessed: 08/05/24 I am a: Patient What is your living situation today?: I have a steady place to live Within the past 12 months, did the food you bought not last and you didn't have the money to get more?: Never true Within the past 12 months, did you worry whether your food would run out before you got money to buy more?: Never true Do you have trouble paying for medicines?: No Do you have trouble getting transportation to medical appointments?: No Do you have trouble paying your heating and electricity bill?: No Do you have trouble taking care of your child, family member or friend?: No Do you have trouble with day-to-day activities such as bathing, preparing meals, shopping, managing finances, etc.?: No Are you currently unemployed and looking for a job?: No Are you interested in more education?: No Please select the resources that you would like help with: None Currently or been in a relationship where the following occur: No concerns reported THRIVE Score: 0 NI-7 AMB Questionnaire NI-7 Date NI - 7 assessed: 08/08/24 Source: Developed by Drs. Neftail Flood, Kendra Henning, Jeff Hammond and colleagues, with an educational tamie from [employer]. Review of Systems Const All systems reviewed & are unremarkable except as noted in HPI and below Eyes Reports no additional complaints ENT Reports no additional complaints Card Reports no additional complaints Resp Reports no additional complaints GI Reports no additional complaints Reports no additional complaints Physical exam (Primary Care) Vital Signs: Last Vital Signs Temp 98.2 F 12/12/24 11:23 Pulse 90 12/12/24 11:23 Resp 18 12/12/24 11:23 BP 124/80 12/12/24 11:23 Pulse Ox 97 12/12/24 11:23 Oxygen Delivery Method Room Air 12/12/24 11:23 BMI result Body Mass Index 42.8 Tobacco/Smoking Status: Tobacco use Status Tobacco use date assessed 12/12/24 12/12/24 11:24 Patient Tobacco Use Status Current everyday Tobacco 12/12/24 11:24 Tobacco use type Cigarette 12/12/24 11:45 e-Cigarette/Vaping Use Never Used 12/12/24 11:24 Thrive Assessment: Date of Thrive Assessment Date Thrive assessed 08/05/24 12/12/24 11:24 Currently or been in a relationship where the following occur: No concerns reported Const General: no acute distress HENMT Face and sinus: Yes normal facial exam Resp Effort & Inspection: normal respiratory effort Auscultation: clear to auscultation bilaterally Cardio Rhythm: regular rhythm Heart sounds: S1 normal heart sound present and S2 normal heart sound present Neuro Sensory Exam: Upper extremity sensory exam abnormal Extrem Right upper extremity: wrist Details: normal to inspection, radial pulse present, normal Felipe's test and Tinel's negative Coding Level of Care Code Est Pt Level 4 (78553) Diagnoses Depression F32.9 Hyperlipidemia E78.5 Overweight E66.3 Carpal tunnel syndrome G56.00 Assessment & Plan Assessment & Plan (1) Depression: Comment: f/u by therapist , hospitalized at [facility] 01/[address] [place] [address] Code(s): F32.9 - Major depressive disorder, single episode, unspecified Category: Medical Plan: Continue current medications patient will get reestablished with a therapist and a psychiatrist (2) Hyperlipidemia: Code(s): E78.5 - Hyperlipidemia, unspecified Category: Medical Plan: Continue pravastatin (3) Overweight: Code(s): E66.3 - Overweight Category: Medical Plan: Increasing physical activity decreasing caloric intake weight loss discussed with the patient (4) Carpal tunnel syndrome: Code(s): G56.00 - Carpal tunnel syndrome, unspecified upper limb Category: Medical Plan: Patient was advised to wear wrist splints at night and avoid excessive use of both hands. Meloxicam is prescribed and if the symptoms persist nerve conduction study will be obtained Orders: Orders Complete Blood Count Auto Diff 10 Months E66.3 - Overweight, E78.5 - Hyperlipidemia, unspecified, F32.9 - Major depressive disorder, single episode, unspecified Comprehensive [place]. Panel Fast 10 Months E66.3 - Overweight, E78.5 - Hyperlipidemia, unspecified, F32.9 - Major depressive disorder, single episode, unspecified Lipid Panel 10 Months E66.3 - Overweight, E78.5 - Hyperlipidemia, unspecified, F32.9 - Major depressive disorder, single episode, unspecified TSH reflex Free T4 10 Months E66.3 - Overweight, E78.5 - Hyperlipidemia, unspecified, F32.9 - Major depressive disorder, single episode, unspecified UA w Microscopic 10 Months E66.3 - Overweight, E78.5 - Hyperlipidemia, unspecified, F32.9 - Major depressive disorder, single episode, unspecified Medications: New meloxicam 15 mg PO DAILY 10 tabs 0RF Refilled pravastatin 40 mg PO BEDTIME 90 tabs 3RF
== END 2024-12-12 12:40 | disposition home or self-care (01) ==
LOC: HO.HMCC 11:04
PROVIDERS: PCP Internal Medicine; Visit Provider Internal Medicine
DX: F32.9 Major depressive disorder, single episode, unspecified (principal); E78.5 Hyperlipidemia, unspecified; E66.3 Overweight; G56.00 Carpal tunnel syndrome, unspecified upper limb

== ENCOUNTER → 2024-12-12 11:03 | Outpatient (BNVA) | payer OTHER, SELFPAY | PROVIDERS: PCP Internal Medicine; Visit Provider Internal Medicine | DX: E66.3 Overweight (principal); E78.5 Hyperlipidemia, unspecified; F41.9 Anxiety disorder, unspecified; G56.00 Carpal tunnel syndrome, unspecified upper limb; F32.9 Major depressive disorder, single episode, unspecified; Z68.41 Body mass index [BMI] 40.0-44.9, adult | CPT/HCPCS: 99212 ==